=== PATIENT | male | born 1995 | race Two or more races ===

== ENCOUNTER 2023-06-18 16:22 | Emergency (ER) | payer OTHER, SELFPAY ==
[2023-06-18 16:34] VITALS: BP 142/88; PULSE 65; RESP 16; TEMP 36.7; O2SAT 98; BMI 38.7
--- NOTE | 2023-06-18 16:34 | ED.GENADULT ---
HPI - General Adult General Chief complaint: Nausea/Vomiting/Diarrhea Stated complaint: dehydrated? Time Seen by Provider: 06/18/23 22:46 Source: patient Mode of arrival: ambulatory Limitations: no limitations History of Present Illness HPI narrative: healthy 27 yo male felt dehydrated today after diarrhea x 2 days resolved lower abdominal cramps no travel, sick contacts, antibiotic use, food exposures, no GIB symptoms, feels much better now - tolerating lots of fluids in triage, symptoms went away, no fam hx of inflammatory bowel disease MD complaint: felt dehydrated Onset (ago): day(s) (2) Severity: mild Pain Consistency: now resolved Relieving factors: none Exacerbating factors: none Associated symptoms: other (felt a little weak ) Treatments prior to arrival: none Related Data Allergies Allergy/AdvReac Type Severity Reaction Status Date / Time No Known Allergies Allergy Unverified 08/01/20 18:23 Review of Systems Review of Systems: Constitutional : No Weight loss, No Fever, No Chills ENT/Mouth : No sore throat, No Rhinorrhea Eyes: No Swelling, No Redness Cardiovascular : No Chest Pain, No SOB, NoEdema Respiratory : No Cough, No Sputum, No Wheezing Gastrointestinal : no Nausea, noVomiting, positive Diarrhea, positive abdominal Pain, No Hematochezia, No Melena Genitourinary : No Dysuria, No Urinary Frequency, No Hematuria, No Urgency Musculoskeletal : No joint pain, No Myalgias, No Joint Swelling Skin : No Skin Lesions, No rash Neuro : No Weakness, No Numbness, No Dizziness, No Headache All other systems reviewed and are negative. [facility] Past Medical History Attestation statement: The following information was validated with the patient. Medical History No pertinent past medical history Social History Social History (Updated 06/18/23 @ 23:04 by Maddie Fan DO) Patient Tobacco Use Status: Never used Tobacco Advance Directives: No Advance Directives Information Provided: No Physical Exam ED Vital Signs: Vital Signs - 24 hr 06/18/23 16:34 06/18/23 23:07 Temperature 98.1 F 97.2 F Pulse Rate 65 52 Respiratory Rate 16 18 Blood Pressure 142/88 H 122/77 Pulse Oximetry 98 99 Oxygen Delivery Method Room Air Room Air BMI result Body Mass Index 38.7 Appearance: Alert. Oriented X3. No acute distress. Eyes: Pupils equal, round and reactive to light. ENT: Pharynx normal. Neck: Normal inspection. Neck supple. CVS: Normal heart rate and rhythm. Pulses normal. Respiratory: No respiratory distress. Breath sounds normal. Abdomen: Soft and nontender. Skin: Skin warm and dry. Normal skin color. Normal skin turgor. Extremities: No lower extremity edema. No calf ttp Neuro: Oriented X 3. No motor deficit. No sensory deficit. Course Course Course Narrative: This is a rapid medical exam: Additional HPI, ROS, PE not included below will be deferred to primary provider. Patient is a 27-year-old male presenting to the emergency department with complaint of diarrhea for the past 3 days, today felt lightheaded. Denies nausea/vomiting. Denies fevers. Reports lower abdominal pain which was worse the 2 previous days. Denies recent antibiotic use. Plan: labs, UA Medical Decision Making Medical Decision Making [facility] Narrative: 27 yo male otherwise healthy resolving lower abdominal pain benign abdominal exam improved diarrhea today from the last two days now tolerating 2 bottle of water and ricardo eugenio - labs are stable and looks not toxic suspect resolving viral infection. he has no pain on exam to suggest ischemic colitis, diverticulitis - send home with supportive care and precautions, he declined IVF feels better with PO intake Differential Diagnosis Differential Diagnoses: The differential diagnosis associated with the presentation includes viral syndrome, dehydration, colitis Lab Data [facility] Lab Attestation statement: I reviewed the patient's lab results. 06/18/23 16:42 06/18/23 16:42 Labs: Lab Results 06/18/23 06/18/23 Range/Units 16:42 16:42 WBC 6.5 (4.8-10.8) X10*3/uL RBC 5.42 (4.60-5.80) X10*6/uL Hgb 14.2 (14.0-18.0) g/dl Hct 44.6 (42.0-52.0) % MCV 82.3 (80.0-98.0) fL MCH 26.2 L (27.0-33.0) pg MCHC 31.8 (31.0-36.0) g/dl RDW 11.7 (11.0-16.0) % Plt Count 200 (160-400) X10*3/uL MPV 9.9 (9.4-12.4) fL Immature Gran % (Auto) 0.5 H (0.0-0.4) % Neut % (Auto) 65.1 (45-73) % Lymph % (Auto) 22.2 (20-40) % [place] % (Auto) 10.2 (2-11) % Eos % (Auto) 1.5 (0-4) % Baso % (Auto) 0.5 (0-2) % Lymph # (Auto) 1.4 (1.2-4.9) X10*3/uL [place] # (Auto) 0.7 (0.1-1.2) X10*3/uL Eos # (Auto) 0.1 (0.0-0.4) X10*3/uL Baso # (Auto) 0.0 (0.0-0.2) X10*3/uL Abs Immat Gran (auto) 0.03 (0.00-0.03) X10*3/uL Absolute Neuts (auto) 4.2 (2.0-8.3) x10*3/uL Absolute Nucleated RBC 0.000 (0.0-0.012) X10*3/uL Nucleated RBC % (auto) 0.0 (0.0-0.2) /100WBC Sodium 138 (135-145) mmol/L Potassium 3.5 (3.3-5.1) mmol/L Chloride 103 (96-108) mmol/L Carbon Dioxide 23 (22-29) mmol/L Anion Gap 16 (12-20) BUN 20 H (9-16) mg/dL Creatinine 1.13 (0.5-1.4) mg/dL Estim Creat Clear Calc 111.6 Estimated GFR > 60 Random Glucose 99 (60-115) mg/dL Calcium 9.0 (8.4-10.2) mg/dL Total Bilirubin 0.7 (0.0-1.0) mg/dL AST 23 (5-37) U/L ALT 32 (0-40) U/L Alkaline Phosphatase 71 (39-117) U/L Total Protein 7.7 (6.5-8.0) g/dL Albumin 4.2 (3.5-5.0) g/dL Tests considered The following testing was considered but not selected: CT scan given symptoms improving doubt infectious illness or acute infection Prescription Management I considered prescription management with: Other (zofran but tolerating PO feels stale for DC) Discharge Plan Discharge Clinical Impression: Diarrhea, Acute dehydration Patient Disposition: Home, Self-Care Instructions: Dehydration (ED), Acute Diarrhea (ED) Additional Instructions: drink plenty of fluids, stay hydrated, return for fevers, worsening pain, bloody stools and abdominal pain. i would expect you go get better in 48 hours. advance diet slowly over the next two days - avoid spicy foods eat bland Interventions: ED Discharge Assessment Last Done: 06/18/23 23:11 Discharge Date/Time: 06/18/23 23:11
[2023-06-18 16:47] LABS: MANUAL DIFF FLAG NO
[2023-06-18 16:48] LABS: Basophils Percent Auto 0.5 % (0-2); Eosinophils Absolute Auto 0.1 X10*3/uL (0.0-0.4); Eosinophils Percent Auto 1.5 % (0-4); Hematocrit 44.6 % (42.0-52.0); Hemoglobin 14.2 g/dl (14.0-18.0); Imm Gran Abs Auto 0.03 X10*3/uL (0.00-0.03); Imm Gran Pct Auto 0.5 % (0.0-0.4); Lymphocytes Absolute Auto 1.4 X10*3/uL (1.2-4.9); Lymphocytes Percent Auto 22.2 % (20-40); Mean Corpuscular HGB Conc 31.8 g/dl (31.0-36.0); Mean Corpuscular Hemoglobin 26.2 pg (27.0-33.0); Mean Corpuscular Volume 82.3 fL (80.0-98.0); Mean Platelet Volume 9.9 fL (9.4-12.4); Monocytes Absolute Auto 0.7 X10*3/uL (0.1-1.2); Monocytes Percent Auto 10.2 % (2-11); Neutrophils Absolute Auto 4.2 x10*3/uL (2.0-8.3); Neutrophils Percent Auto 65.1 % (45-73); Platelet Count 200 X10*3/uL (160-400); Red Blood Count 5.42 X10*6/uL (4.60-5.80); Red Cell Distribution Width 11.7 % (11.0-16.0); White Blood Count 6.5 X10*3/uL (4.8-10.8)
[2023-06-18 17:13] LABS: Alanine Aminotransferase 32 U/L (0-40); Albumin Level 4.2 g/dL (3.5-5.0); Alkaline Phosphatase 71 U/L (39-117); Anion Gap 16 (12-20); Aspartate Amino Transferase 23 U/L (5-37); Bilirubin Total 0.7 mg/dL (0.0-1.0); Blood Urea Nitrogen 20 mg/dL (9-16); Carbon Dioxide 23 mmol/L (22-29); Chloride 103 mmol/L (96-108); Creatinine Clr Calc Pharmacy 111.6; Estimated Glomerular Filt Rate > 60; Glucose Random 99 mg/dL (60-115); Potassium 3.5 mmol/L (3.3-5.1); Sodium 138 mmol/L (135-145); Total Protein 7.7 g/dL (6.5-8.0)
[2023-06-18 23:07] VITALS: BP 122/77; PULSE 52; RESP 18; TEMP 36.2; O2SAT 99
--- NOTE | 2023-06-18 23:10 | PC.NURSE ---
This RN only reviewed discharge instruction with pt. pt verbalized understanding. Notified RN Telma. No sign of distress upon discharge.
== END 2023-06-18 23:11 | disposition home or self-care (01) ==
PROVIDERS: Registered Nurse Emergency; Emergency Provider Emergency Medicine
DX: R19.7 Diarrhea, unspecified (principal); E86.0 Dehydration
CPT/HCPCS: 36415; 80053; 85025; 99282; 99283

== ENCOUNTER 2025-08-09 15:47 | Emergency (ER) | payer OTHER, SELFPAY ==
[2025-08-09 16:21] VITALS: BP 146/70; PULSE 58; RESP 16; TEMP 36.3; O2SAT 98; BMI 38.6
--- NOTE | 2025-08-09 16:29 | ECG_ITS ---
Test Reason : weakness Blood Pressure : */* mmHG Vent. Rate : 60 BPM Atrial Rate : 60 BPM P-R Int : 182 ms QRS Dur : 88 ms QT Int : 380 ms P-R-T Axes : 43 36 7 degrees QTcB Int : 380 ms Normal sinus rhythm with sinus arrhythmia Normal ECG No previous ECGs available Referred By: Fadumo Brooks Electronically Signed By: Bal Lazo
[2025-08-09 16:44] LABS: MANUAL DIFF FLAG NO
[2025-08-09 16:46] LABS: Hematocrit 43.3 % (42.0-52.0); Hemoglobin 14.2 g/dl (14.0-18.0); Imm Gran Abs Auto 0.02 X10*3/uL (0.00-0.03); Imm Gran Pct Auto 0.3 % (0.0-0.4); Lymphocytes Absolute Auto 1.4 X10*3/uL (1.2-4.9); Mean Corpuscular HGB Conc 32.8 g/dl (31.0-36.0); Mean Corpuscular Hemoglobin 26.8 pg (27.0-33.0); Mean Corpuscular Volume 81.7 fL (80.0-98.0); NRBC Abs Auto 0.000 X10*3/uL (0.0-0.012); NRBC Pct Auto 0.0 /100WBC (0.0-0.2); Platelet Count 204 X10*3/uL (160-400); Red Blood Count 5.30 X10*6/uL (4.60-5.80); White Blood Count 6.1 X10*3/uL (4.8-10.8)
[2025-08-09 17:02] LABS: Alanine Aminotransferase 31 U/L (0-40); Albumin Level 4.7 g/dL (3.5-5.0); Alkaline Phosphatase 72 U/L (39-117); Anion Gap 10 (12-20); Aspartate Amino Transferase 27 U/L (5-37); Blood Urea Nitrogen 16 mg/dL (9-16); Calcium 8.9 mg/dL (8.4-10.2); Carbon Dioxide 29 mmol/L (22-29); Chloride 103 mmol/L (96-108); Creatinine Clr Calc Pharmacy 112.3; Estimated Glomerular Filt Rate > 60; Potassium 4.3 mmol/L (3.3-5.1); Sodium 138 mmol/L (135-145); Total Protein 7.8 g/dL (6.5-8.0)
[2025-08-09 17:13] LABS: Troponin-I High Sensitivity < 2.7 ng/L (<3.5-35.0)
--- NOTE | 2025-08-09 19:08 | ED.NEUROSD ---
HPI - Neuro Symptoms/Deficit General Chief Complaint: Neuro Symptoms/Deficit Stated Complaint: tongue numbness and blurred vision Time Seen by Provider: 08/09/25 19:08 Source: patient Mode of arrival: ambulatory Limitations: no limitations History of Present Illness ED Provider: HPI Narrative: 29-year-old male otherwise healthy in the, nonsmoker nondrinker, has had panic attack in the past, does not feel like there is a whole lot of stress in his life right now he is only sleeps about 5 hours a day however and works long hours, as he was finishing work he started having blurry vision and then felt that his tongue was becoming numb lasted approximately 25 minutes, by the time he presented to the ER he was symptom free, he did not have any chest pain shortness of breath, it did not have any numbness and tingling is in his upper or lower extremities, no fevers or chills reported. Related Data Allergies Allergy/AdvReac Type Severity Reaction Status Date / Time No Known Allergies Allergy Verified 08/09/25 16:25 Review of Systems Constitutional: Constitutional: Reports as per [facility] Past Medical History Medical History No pertinent past medical history Social History Social History (Updated 06/18/23 @ 23:04 by Maddie Fan DO) Patient Tobacco Use Status: Never used Tobacco Advance Directives: No Advance Directives Information Provided: Yes Do you have a plan to hurt others: No Plan Physical Exam Vital Signs: Vital Signs: Last Vital Signs Temp 97.4 F 08/09/25 16:21 Pulse 58 08/09/25 16:21 Resp 16 08/09/25 16:21 BP 146/70 H 08/09/25 16:21 Pulse Ox 98 08/09/25 16:21 O2 Del Method Room Air 08/09/25 16:21 BMI result Body Mass Index 38.6 Const: Other: Gen: ?Overall well-appearing patient HEENT: Good dentition, uvula midline Neck: Supple, no LAD, no lymphadenopathy CV: RRR, no obvious murmurs appreciated MSK: FROM, strength 5/5 all extremities Skin: Warm, dry, intact, Neuro: ?Alert and oriented x3, moving upper and lower extremities symmetrically, no obvious facial asymmetry noted, cranial nerves 2-12 intact Medical Decision Making Medical Decision Making [facility] Narrative: 7:37 PM 08/09/2025 (Dr. Mark Harry): Patient had an episode of blurry vision and tongue numbness, primarily want to make sure his symptoms not related to cardiac issues that he is very young and he did not have any chest pain equivalents, ECG, cardiac enzymes were obtained and they were reassuring, there was no evidence for anemia to suspect vitamin-B complex deficiencies, he has no obvious evidence for stroke or Maloney's palsy, has not had any dental procedures, I suspect that he had panic reaction possibly he had a vagal episode or an episode of hypoglycemia he states that he usually eats around the same time and today he ate lunch later than usual, with that said I did not feel further imaging such as CT brain is indicated. I have discussed with the patient, he feels comfortable with the workup and I will anticipate discharging him. Differential Diagnosis Differential Diagnoses: The differential diagnosis associated with the presentation includes (Oral inflammation or infection, nutritional deficiency such as vitamin B12, iron, alcohol, tobacco, panic attack, dental injury) Lab Data [facility] Lab Attestation statement: I reviewed the patient's lab results. 08/09/25 16:39 08/09/25 16:39 Labs: Lab Results 08/09/25 Range/Units 16:39 WBC 6.1 (4.8-10.8) X10*3/uL RBC 5.30 (4.60-5.80) X10*6/uL Hgb 14.2 (14.0-18.0) g/dl Hct 43.3 (42.0-52.0) % MCV 81.7 (80.0-98.0) fL MCH 26.8 L (27.0-33.0) pg MCHC 32.8 (31.0-36.0) g/dl RDW 11.9 (11.0-16.0) % Plt Count 204 (160-400) X10*3/uL MPV 9.9 (9.4-12.4) fL Immature Gran % (Auto) 0.3 (0.0-0.4) % Neut % (Auto) 69.5 (45-73) % Lymph % (Auto) 22.2 (20-40) % [place] % (Auto) 6.4 (2-11) % Eos % (Auto) 1.1 (0-4) % Baso % (Auto) 0.5 (0-2) % Lymph # (Auto) 1.4 (1.2-4.9) X10*3/uL [place] # (Auto) 0.4 (0.1-1.2) X10*3/uL Eos # (Auto) 0.1 (0.0-0.4) X10*3/uL Baso # (Auto) 0.0 (0.0-0.2) X10*3/uL Abs Immat Gran (auto) 0.02 (0.00-0.03) X10*3/uL Absolute Neuts (auto) 4.2 (2.0-8.3) x10*3/uL Absolute Nucleated RBC 0.000 (0.0-0.012) X10*3/uL Nucleated RBC % (auto) 0.0 (0.0-0.2) /100WBC Sodium 138 (135-145) mmol/L Potassium 4.3 (3.3-5.1) mmol/L Chloride 103 (96-108) mmol/L Carbon Dioxide 29 (22-29) mmol/L Anion Gap 10 L (12-20) BUN 16 (9-16) mg/dL Creatinine 1.10 (0.5-1.4) mg/dL Estim Creat Clear Calc 112.3 Estimated GFR > 60 Random Glucose 145 H (60-115) mg/dL Calcium 8.9 (8.4-10.2) mg/dL Total Bilirubin 0.6 (0.0-1.0) mg/dL AST 27 (5-37) U/L ALT 31 (0-40) U/L Alkaline Phosphatase 72 (39-117) U/L Troponin I High Sens < 2.7 (<3.5-35.0) ng/L Total Protein 7.8 (6.5-8.0) g/dL Albumin 4.7 (3.5-5.0) g/dL Independent Interpretation I performed an independent interpretation of an: EKG (60 beats per minute , otherwise normal ECG without dysrhythmia, AV severo blocks or ST-T changes to suspect underlying ACS, my independent interpretation) Discharge Plan Discharge Clinical Impression: Numbness of tongue, Blurred vision Patient Disposition: Home, Self-Care Additional Instructions: Evaluated with an episode of blurry vision and tongue numbness for about 25-30 minutes, as discussed there were numerous things that can cause this, some vitamin deficits, dental procedures, I wanted to make sure that this was not related to your heart and your EKG is that of a healthy person, not very typical for stroke and you did not have any evidence for a stroke presentation, your blood pressure was slightly elevated and I would keep an eye on that, recommend cutting down to less than 2 g of salt a day, I am making sure you have PCP involved in your care, we will also discuss that this could have been due to an anxiety like reaction and I recommend that you get 7-8 hours of sleep a night, and you exercise and should you have any worsening issues or concerns please do not hesitate to come back to the ER for evaluation. Print Language: Danish
[2025-08-09 19:45] VITALS: BP 96/55; PULSE 65; RESP 16; TEMP 36.3; O2SAT 98
[2025-08-09 19:49] VITALS: BP 96/55; PULSE 65; RESP 16; TEMP 36.3; O2SAT 98
== END 2025-08-09 19:49 | disposition home or self-care (01) ==
PROVIDERS: Physician Assistant Medical; Emergency Provider Emergency Medicine
DX: H53.8 Other visual disturbances (principal); R20.0 Anesthesia of skin; I49.8 Other specified cardiac arrhythmias; R53.1 Weakness
CPT/HCPCS: 36415; 80053; 84484; 85025; 93005; 99283; 99284

== ENCOUNTER → 2025-08-09 16:29 | Outpatient (BNV) | payer OTHER, SELFPAY | PROVIDERS: Emergency Provider Emergency Medicine; Visit Provider Internal Medicine Cardiovascular Disease | DX: R53.1 Weakness (principal) | CPT/HCPCS: 93010 ==

== ENCOUNTER 2025-08-20 15:34 | Outpatient (AMB) | payer OTHER, SELFPAY ==
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
[2025-08-20 15:07] VITALS: BP 120/80; PULSE 67; TEMP 35.9; O2SAT 98; BMI 37.6
== END 2025-08-20 16:05 | disposition home or self-care (01) ==
PROVIDERS: PCP Student in an Organized Health Care Education/Training Program; Visit Provider Student in an Organized Health Care Education/Training Program
DX: F41.9 Anxiety disorder, unspecified (principal); F32.A Depression, unspecified; H53.8 Other visual disturbances; F41.0 Panic disorder [episodic paroxysmal anxiety]

== ENCOUNTER 2025-08-20 15:34 | Outpatient (REF) | payer OTHER, SELFPAY ==
[2025-08-20 17:58] LABS: Hemoglobin A1C 120.8135 umol/L
[2025-08-20 18:26] LABS: Cholesterol 199 mg/dL (<200); HDL Cholesterol 32 mg/dL (>40); Triglycerides 157 mg/dL (<150)
[2025-08-21 07:51] LABS: Syphilis Screen Nonreactive (Nonreactive)
[2025-08-21 07:59] LABS: HBS Num1 4.52 mIU/mL (0-7.99); HBc Num1 0.05 S/CO (0.00-0.79); HBsAGNum1 0.40 S/CO (0.00-0.99); HIV Num 1 0.07 S/CO (0.00-0.99); Hepatitis A Antibody IgM 0.22 Index (0-0.79); Hepatitis B Surface Antigen Negative (Negative); ~HepC Num1 0.21 S/CO (0.00-0.79); ~Hepatitis A Antibody IgM Nonreactive (Nonreactive); ~Hepatitis B Surface Antibody NONREACTIVE (Nonreactive); ~Hepatitis C Antibody Nonreactive (Nonreactive)
== END 2025-08-20 15:35 | disposition home or self-care (01) ==
LOC: HO.LAB 15:34
PROVIDERS: PCP Student in an Organized Health Care Education/Training Program; Visit Provider Student in an Organized Health Care Education/Training Program
DX: Z76.89 Persons encountering health services in other specified circumstances (principal); F41.0 Panic disorder [episodic paroxysmal anxiety]; F41.9 Anxiety disorder, unspecified; F32.A Depression, unspecified; H53.8 Other visual disturbances
CPT/HCPCS: 36415; 80061; 83036; 84443; 86704; 86706; 86709; 86780; 86803; 87340; 87389; 96127

== ENCOUNTER 2025-10-01 13:56 | Outpatient (AMB) | payer OTHER, SELFPAY ==
[2025-10-01 14:04] VITALS: BP 102/68; PULSE 58; TEMP 35.9; O2SAT 98; BMI 38.5
--- NOTE | 2025-10-01 14:04 | A.OFFPC_ITS ---
Vital Signs 10/01/25 14:04 Height 5 ft 6 in Weight 238 lb 8 oz BMI 38.5 BP 102/68 Blood Pressure Location Lt brachial Position Sitting Pulse 58 Pulse Source Pulse Oximeter Temp 96.6 F L Temp Source Temporal Artery Scan Pulse Oximetry (%) 98 Oxygen Delivery Method Room Air Intake Visit Reasons: 6 week f/u Manager Strategy Required: No Accompanied by: Self / Same As Patient Allergies No Known Allergies Allergy (Verified 10/01/25 14:05) Tobacco use date assessed: 10/01/25 Dental Screening Dental Screen Date: 10/01/25 Did you have a dental visit in the last 12 months?: Yes Did you have a dental problem in the last 6 months where you did not have access to dental care?: No HPI HPI Comments History of Present Illness Details History of Present Illness The patient is a 29-year-old male presenting for follow-up regarding anxiety and confusion. He reports ongoing feelings of confusion and feeling out of it, which he describes as his normal state recently. The patient previously met criteria for mild depression and mild anxiety, but he states he does not feel depressed and identifies anxiety as his primary concern. A previous trial of sertraline was discontinued after three days due to adverse effects, which he described as his whole body tingling. The patient reports his sleep quality is variable, and he does not always wake up feeling rested. He does not believe he snores. He also complains of tension headaches when he is very tired. The patient reports a dislike of taking medications. Medical History: - Mild anxiety, per previous assessment. - Mild depression, per previous assessme nt. - Unsuccessful trial of sertraline due t o adverse effects (body tingling). Medications: - The patient is not currently taking an y medications. Diagnostic Results: - Labs: Previous blood work was normal. Social History - Marital status: Single. - Employment: Patient is employed. - Social support: The patient frequently talks with friends on the phone. [facility] Medical History (Updated 10/01/25 @ 14:31 by Сергей Valdez MD) Confusion Panic attack Anxiety and depression Blurry vision, bilateral No pertinent past medical history Family History Mother No problems noted. Father No problems noted. Social History Housing: Apartment Patient Tobacco Use Status: Never used Tobacco e-Cigarette/Vaping Use: Never Used service: No Current occupational status: employed Cognitive needs: No Hearing needs: No Vision needs: No Questionnaire PHQ-9 Over the last 2 weeks, how often have you been bothered by any of the following problems? 1. Little interest or pleasure in doing things: more than half the days 2. Feeling down, depressed, or hopeless: not at all (anxiety) 3. Trouble falling or staying asleep, or sleeping too much: several days 4. Feeling tired or having little energy: nearly every day 5. Poor appetite or overeating: not at all 6. Feeling bad about yourself - or that you are a failure or have let yourself or your family down: not at all 7. Trouble concentrating on things, such as reading the newspaper or watching television: several days 8. Moving or speaking so slowly that other people could have noticed. Or the opposite - being so fidgety or restless that you have been moving around a lot more than usual: not at all 9. Thoughts that you would be better off or of hurting yourself in some w ay: not at all Total score: 7 Depression Screening Interpretation: Positive Depression Screening Done: Yes 69066 - PHQ-9 Billing: Yes Source: Developed by Drs. Trae Fuentes, Stacy Merritt, Dario Currie and colleagues, with an educational dani from [employer]. Thrive Questionnaire Date Thrive assessed: 10/01/25 I am a: Patient What is your living situation today?: I have a steady place to live Within the past 12 months, did the food you bought not last and you didn't have the money to get more?: Never true Within the past 12 months, did you worry whether your food would run out before you got money to buy more?: Never true Do you have trouble paying for medicines?: No Do you have trouble getting transportation to medical appointments?: No Do you have trouble paying your heating and electricity bill?: No Do you have trouble taking care of your child, family member or friend?: No Do you have trouble with day-to-day activities such as bathing, preparing meals, shopping, managing finances, etc.?: No Are you currently unemployed and looking for a job?: No Are you interested in more education?: No THRIVE Score: 0 AUDIT C Alcohol Use Questionnaire (AUDIT-C) 1. How often do you have a drink containing alcohol?: Never 3. How often do you have six or more drinks on one occasion?: Never Total Score: 0 Score Reviewed/Action Taken: Yes SHANA-7 AMB Questionnaire SHANA-7 Date SHANA - 7 assessed: 10/01/25 Feeling nervous, anxious, or on edge: 2 = More than half the days Not being able to stop or control worryin = More than half the days Worrying too much about different things: 1 = Several days Trouble relaxin = More than half the days Being so restless that it is hard to sit still: 0 = Not at all Becoming easily annoyed or irritable: 0 = Not at all Feeling afraid as if something awful might happen: 1 = Several days Total SHANA-7 score (0-4 normal; 5-9 mild; 10-14 moderate; 15-21 severe): 8 Source: Developed by Drs. Trae Fuentes, Stacy Merritt, Dario Currie and colleagues, with an educational dani from [employer]. SHANA-7 Assessment Billing SHANA-7 Assessment Tool: SHANA-7 Assessment 57874 Review of Systems Narrative Review of Systems - Constitutional: Reports sometimes not feeling rested upon waking. - Neurologic: Reports confusion and feeling out of it. Reports occasional tension headaches. Denies significant vision changes or memory loss. - Psychiatric: Reports anxiety. Denies feeling depressed. - Respiratory: Denies snoring. All systems reviewed & are unremarkable except as reviewed in HPI and above Physical exam (Primary Care) Vital Signs: Last Vital Signs Temp 96.6 F L 10/01/25 14:04 Pulse 58 10/01/25 14:04 BP 102/68 10/01/25 14:04 Pulse Ox 98 10/01/25 14:04 Oxygen Delivery Method Room Air 10/01/25 14:04 BMI result Body Mass Index 38.5 Tobacco/Smoking Status: Tobacco use Status Tobacco use date assessed 10/01/25 10/01/25 14:06 Patient Tobacco Use Status Never used Tobacco 10/01/25 14:06 e-Cigarette/Vaping Use Never Used 10/01/25 14:06 PHQ-9: PHQ-9 Score PHQ-9: Total score 7 10/01/25 14:06 Depression Screening Interpretation: Positive Thrive Assessment: Date of Thrive Assessment Date Thrive assessed 10/01/25 10/01/25 14:06 Narrative Physical Exam General: +Alert and oriented, Well nourished, No acute distress. Eye: Pupils are equal, round and reactive to light, Intact accommodation, Extraocular movements are intact, Normal conjunctiva, Vision unchanged. HENT: Normocephalic, Atraumatic, Tympanic membranes are clear, Normal hearing, Oral mucosa is moist, No pharyngeal erythema, Ear canals patent. Respiratory: Lungs CTA bilaterally, No wheeze, Respirations are non-labored. Cardiovascular: Regular rate, Regular rhythm, S1 auscultated, S2 auscultated, No murmur, Good pulses equal in all extremities, Normal peripheral perfusion, No edema. Gastrointestinal: Soft, Non-tender, Non-distended, Normal bowel sounds, No organomegaly. Musculoskeletal: Normal range of motion, Normal strength, No tenderness, No swelling, No deformity, Normal gait. Integumentary: Warm, Dry, [place], Intact. Neurologic: Alert, Oriented, Normal sensory, Normal motor function, No focal defects, Cranial Nerves II-XII are grossly intact, Normal deep tendon reflexes. Psychiatric: Cooperative, Appropriate mood & affect, Normal judgment, Mild depression and anxiety noted. Office Procedures Flu Questionnaire Does the patient have a severe egg allergy?: No Does the patient have severe life threatening allergies?: No Does the patient have a fever or illness today?: No Has the patient ever had Guillain-[place] Syndrome?: No Has the patient ever had any past reaction to a flu shot?: No Immunizations Fluarix [id number] (PF) 45 mcg (15 mcg x 3)/0.5 mL IM syringe Performing Provider: Сергей Valdez MD Performing Location: [facility] [place] [facility] Documented (not given) by: Keli Sevilla CMA on 10/01/25 14:14 Reason Not Given: Patient Refused Coding Level of Care Code Est Pt Level 4 (41097) Complex EM visit Add On G2211 Diagnoses Anxiety and depression F41.9; F32.A Confusion R41.0 Additional Codes SHANA-7 Assessment Billing - SHANA-7 Assessment Tool: SHANA-7 Assessment 77062 ([id number]) PHQ-9 - 58656 - PHQ-9 Billing: Yes ([id number]) Assessment & Plan Assessment & Plan (1) Anxiety and depression: Comment: - The patient's primary complaint is anxiety, with associated symptoms of confusion, which could be derealization. - He has a history of meeting criteria for mild anxiety and mild depression, though he denies feeling depressed. - A prior trial of sertraline was unsuccessful due to side effects. - The plan is to start buspirone 5 mg twice daily. - The patient was counseled that the medication can take 5 to 8 weeks to work and may cause him to feel funny for the first few days. - A referral to a therapist was recommended. - The patient was also advised on lifestyle modifications, including eating rug cleaner helper, managing stress, and focusing on himself. Code(s): F41.9 - Anxiety disorder, unspecified; F32.A - Depression, unspecified Category: Medical (2) Confusion: Comment: - The patient reports not always feeling rested after sleep, which may contribute to his feeling of confusion. - To rule out an underlying sleep disorder, a sleep study will be ordered to test for sleep apnea. - The patient reports headaches when he is tired, likely related to stress and fatigue. - Management will focus on the lifestyle modifications discussed for his anxiety, including stress reduction and improved self-care. Code(s): R41.0 - Disorientation, unspecified Category: Medical Plan: Health Maintenance: - Advised to adopt a rug cleaner helper, healthier diet. - Recommended stress reduction and avoiding overworking. - Recommended seeking a therapist for talk therapy. - Advised to use eye protection at work. Patient was informed and verbally consented to the use of an ambient scribe for clinic note documentation during this visit. Plan I discussed with the patient his primary symptoms of anxiety and confusion. I explained that feelings of confusion can be a form of derealization related to anxiety. We reviewed his previous assessment, which met the criteria for mild depression and anxiety, and his unsuccessful trial of sertraline, which he stopped after three days due to a tingling sensation. I have prescribed buspirone 5 mg twice daily and counseled him that it may take 5 to 8 weeks to become effective. I informed him that he might feel a little funny for a few days, but it is important to continue the medication to get past this initial period. I have also ordered a sleep study to rule out sleep apnea as a contributing factor to his symptoms and recommended that he find a therapist. We discussed the importance of behavioral changes, including eating better, managing stress, and focusing on himself. A follow-up appointment is scheduled in 3 months to assess his response to treatment. Orders: Orders Influenza [id number] Immunization Today Z23 - Encounter for immunization RT PSG in-lab sleep study Today G47.33 - Obstructive sleep apnea (adult) (pediatric) Medications: New buspirone 5 mg PO BID 60 tabs 0RF Patient Instructions: - Take one buspirone 5 mg pill in the morning and one in the evening as prescribed. - Be aware that this medication may take 5 to 8 weeks to start working. You might feel a little funny for the first few days, but it is important to keep taking the medication to allow it to work. - You will be getting a sleep study to check for sleep apnea. Please complete this test. - It is recommended that you find a therapist to talk with. - Focus on self-care by eating a healthier diet, reducing stress, and avoiding overworking yourself. - Schedule a follow-up appointment in 3 months to check on your anxiety.
== END 2025-10-01 14:28 | disposition home or self-care (01) ==
LOC: HO.HMCHD 13:56
PROVIDERS: PCP Student in an Organized Health Care Education/Training Program; Visit Provider Student in an Organized Health Care Education/Training Program
DX: F41.9 Anxiety disorder, unspecified (principal); F32.A Depression, unspecified; R41.0 Disorientation, unspecified; Z23 Encounter for immunization

== ENCOUNTER → 2025-10-01 13:56 | Outpatient (BNVA) | payer OTHER, SELFPAY | PROVIDERS: PCP Student in an Organized Health Care Education/Training Program; Visit Provider Student in an Organized Health Care Education/Training Program | DX: F41.9 Anxiety disorder, unspecified (principal); F32.A Depression, unspecified; R41.0 Disorientation, unspecified; Z28.21 Immunization not carried out because of patient refusal; Z13.31 Encounter for screening for depression; Z13.39 Encounter for screening examination for other mental health and behavioral disorders | CPT/HCPCS: 90471; 96127 ==